=== PATIENT | male | born 2005 | race Caucasian/White ===

== ENCOUNTER 2023-08-21 12:50 | Outpatient (AMB) | payer OTHER, SELFPAY ==
--- NOTE | 2023-08-21 13:09 | MHC.PC.OV ---
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 [facility] Social History (Updated 08/21/23 @ 13:53 by Maris Vera MD) Household Members Other:: [employer] music, plays guitar, lives with grandfather Housing: House Patient Tobacco Use Status: Never used Tobacco e-Cigarette/Vaping Use: Never Used service: No Current occupational status: employed Cognitive needs: No Hearing needs: No Vision needs: Yes Questionnaire PHQ-9 Over the last 2 weeks, how often have you been bothered by any of the following problems? 1. Little interest or pleasure in doing things: several days 2. Feeling down, depressed, or hopeless: several days 3. Trouble falling or staying asleep, or sleeping too much: several days 4. Feeling tired or having little energy: nearly every day 5. Poor appetite or overeating: several days 6. Feeling bad about yourself - or that you are a failure or have let yourself or your family down: several days 7. Trouble concentrating on things, such as reading the newspaper or watching television: several days 8. Moving or speaking so slowly that other people could have noticed. Or the opposite - being so fidgety or restless that you have been moving around a lot more than usual: several days 9. Thoughts that you would be better off or of hurting yourself in some way: not at all Total score: 10 Depression Screening Interpretation: Positive (established with a therapist) Depression Screening Follow-up: Existing condition and In treatment Depression Screening Done: Yes Source: Developed by Drs. Tony Hernandez, Chris Gaytan and colleagues, with an educational hannah from [employer]. Thrive Questionnaire Date Thrive assessed: 08/21/23 I am a: Patient What is your living situation today?: I have a steady place to live Within the past 12 months, did the food you bought not last and you didn't have the money to get more?: Never true Within the past 12 months, did you worry whether your food would run out before you got money to buy more?: Never true Do you have trouble paying for medicines?: No Do you have trouble getting transportation to medical appointments?: No Do you have trouble paying your heating and electricity bill?: No Do you have trouble taking care of your child, family member or friend?: No Do you have trouble with day-to-day activities such as bathing, preparing meals, shopping, managing finances, etc.?: No Are you currently unemployed and looking for a job?: No THRIVE Score: 0 AUDIT C Alcohol Use Questionnaire (AUDIT-C) 1. How often do you have a drink containing alcohol?: Never Total Score: 0 ROSALIND-7 AMB Questionnaire ROSALIND-7 Date ROSALIND - 7 assessed: 08/21/23 Feeling nervous, anxious, or on edge: 3 = Nearly every day Not being able to stop or control worryin = Several days Worrying too much about different things: 3 = Nearly every day Trouble relaxin = More than half the days Being so restless that it is hard to sit still: 2 = More than half the days Becoming easily annoyed or irritable: 1 = Several days Feeling afraid as if something awful might happen: 0 = Not at all Total ROSALIND-7 score (0-4 normal; 5-9 mild; 10-14 moderate; 15-21 severe): 12 Source: Developed by Drs. Tony Hernandez, aKty Campbell, Chris Lomeli and colleagues, with an educational hannah from [employer]. Review of Systems Const All systems reviewed & are unremarkable except as noted in HPI and below Reports no additional complaints Eyes Reports no additional complaints ENT Reports no additional complaints Card Reports no additional complaints Resp Reports no additional complaints GI Reports no additional complaints Physical exam (Primary Care) Vital Signs: Last Vital Signs Pulse 71 08/21/23 13:10 BP 118/70 08/21/23 13:10 Pulse Ox 97 08/21/23 13:10 Oxygen Delivery Method Room Air 08/21/23 13:10 BMI result Body Mass Index 20.5 Tobacco/Smoking Status: Tobacco use Status Tobacco use date assessed 08/21/23 08/21/23 13:15 Patient Tobacco Use Status Never used Tobacco 08/21/23 13:53 e-Cigarette/Vaping Use Never Used 08/21/23 13:53 PHQ-9: PHQ-9 Score PHQ-9: Total score 10 08/21/23 13:55 Depression Screening Interpretation: Positive (established with a therapist) Depression Screening Follow-up: Existing condition and In treatment Thrive Assessment: Date of Thrive Assessment Date Thrive assessed 08/21/23 08/21/23 13:18 Const General: no acute distress HENMT Head: Yes normal to inspection Mouth: Normal oral and palatal mucosa present Eyes General: appearance normal, both eyes and all related structures Neck Neck: Yes no lymphadenopathy and Yes supple Resp Effort & Inspection: normal respiratory effort Auscultation: clear to auscultation bilaterally Cardio Rhythm: regular rhythm Heart sounds: S1 normal heart sound present and S2 normal heart sound present GI Inspection: Yes normal to inspection Palpation (GI): Soft to palpation Percussion: Yes normal to percussion Auscultation: normal bowel sounds Assessment and Plan Assessment & Plan (1) Hypertrophic cardiomyopathy: Comment: [facility] f/u annually Code(s): I42.2 - Other hypertrophic cardiomyopathy Plan: Follow-up with [facility] annually (2) Annual physical exam: Code(s): Z00.00 - Encounter for general adult medical examination without abnormal findings Plan: Well-balanced diet regular physical activity discussed with the patient. He will return for fasting blood work. Orders: Orders Complete Blood Count no Diff Today Z00.00 - Encounter for general adult medical examination without abnormal findings Comprehensive [place]. Panel Fast Today Z00.00 - Encounter for general adult medical examination without abnormal findings Lipid Panel Today Z00.00 - Encounter for general adult medical examination without abnormal findings UA w Microscopic Today Z00.00 - Encounter for general adult medical examination without abnormal findings Coding Level of Care Code Est Pt Prev Care 18-39y(13242) Diagnoses Hypertrophic cardiomyopathy I42.2 Annual physical exam Z00.00
[2023-08-21 13:10] VITALS: BP 118/70; PULSE 71; O2SAT 97; BMI 20.5
== END 2023-08-21 14:03 | disposition home or self-care (01) ==
PROVIDERS: PCP Internal Medicine; Visit Provider Internal Medicine
DX: I42.2 Other hypertrophic cardiomyopathy (principal); Z00.00 Encounter for general adult medical examination without abnormal findings
CPT/HCPCS: 99395

== ENCOUNTER 2024-10-14 08:20 | Outpatient (AMB) | payer OTHER, SELFPAY ==
--- NOTE | 2024-10-14 08:22 | MHC.PC.OV ---
Vital Signs 10/14/24 08:24 Height 5 ft 11 in Weight 159 lb 6 oz BMI 22.2 BP 118/84 Blood Pressure Location Lt brachial Position Sitting Respiration 14 Pulse 86 Pulse Source Pulse Oximeter Temp 98.0 F Temp Source Oral Pulse Oximetry (%) 100 Oxygen Delivery Method Room Air Intake Visit Reasons: Annual PE/insurance inactive Intake Note: Pt is here for annual PE. Allergies pollen extracts [POLLEN] Allergy (Mild, Verified 10/14/24 08:24) ITCHY EYES Medication List - Last Reconciled 10/14/24 by Maris Vera MD No Known Home Meds Tobacco use date assessed: 10/14/24 Dental Screening Dental Screen Date: 10/14/24 Did you have a dental visit in the last 12 months?: No Did you have a dental problem in the last 6 months where you did not have access to dental care?: No Was dental information given to patient?: No HPI Annual PE/insurance inactive HPI Details Patient presents for physical [facility] Medical History (Updated 10/14/24 @ 09:11 by Maris Vera MD) Annual physical exam Hypertrophic cardiomyopathy Social History Household Members Other:: [employer] music, plays guitar, lives with grandfather Housing: House Patient Tobacco Use Status: Never used Tobacco e-Cigarette/Vaping Use: Currently Using service: No Current occupational status: employed Cognitive needs: No Hearing needs: No Vision needs: Yes Questionnaire PHQ-9 Over the last 2 weeks, how often have you been bothered by any of the following problems? 1. Little interest or pleasure in doing things: several days 2. Feeling down, depressed, or hopeless: several days 3. Trouble falling or staying asleep, or sleeping too much: nearly every day 4. Feeling tired or having little energy: more than half the days 5. Poor appetite or overeating: not at all 6. Feeling bad about yourself - or that you are a failure or have let yourself or your family down: not at all 7. Trouble concentrating on things, such as reading the newspaper or watching television: more than half the days 8. Moving or speaking so slowly that other people could have noticed. Or the opposite - being so fidgety or restless that you have been moving around a lot more than usual: not at all 9. Thoughts that you would be better off or of hurting yourself in some way: not at all Total score: 9 Depression Screening Interpretation: Positive (Patient will schedule an appointment with a counselor he declined medications) Depression Screening Follow-up: Existing condition Depression Screening Done: Yes 33339 - PHQ-9 Billing: Yes Source: Developed by Drs. Tony Hernandez, Katy Campbell, Chris Lomeli and colleagues, with an educational hannah from [employer] Thrive Questionnaire Date Thrive assessed: 10/14/24 I am a: Patient What is your living situation today?: I have a steady place to live Within the past 12 months, did the food you bought not last and you didn't have the money to get more?: Never true Within the past 12 months, did you worry whether your food would run out before you got money to buy more?: Never true Do you have trouble paying for medicines?: No Do you have trouble getting transportation to medical appointments?: No Do you have trouble paying your heating and electricity bill?: No Do you have trouble taking care of your child, family member or friend?: No Do you have trouble with day-to-day activities such as bathing, preparing meals, shopping, managing finances, etc.?: No Are you currently unemployed and looking for a job?: No Are you interested in more education?: No Please select the resources that you would like help with: None Currently or been in a relationship where the following occur: No concerns reported THRIVE Score: 0 AUDIT C Alcohol Use Questionnaire (AUDIT-C) 1. How often do you have a drink containing alcohol?: 2-4 times a month 2. How many drinks containing alcohol do you have on a typical day when you are drinking?: 3 or 4 3. How often do you have six or more drinks on one occasion?: Less than monthly Total Score: 4 ROSALIND-7 AMB Questionnaire ROSALIND-7 Date ROSALIND - 7 assessed: 10/14/24 Feeling nervous, anxious, or on edge: 3 = Nearly every day Not being able to stop or control worryin = More than half the days Worrying too much about different things: 2 = More than half the days Trouble relaxin = Several days Being so restless that it is hard to sit still: 1 = Several days Becoming easily annoyed or irritable: 1 = Several days Feeling afraid as if something awful might happen: 1 = Several days Total ROSALIND-7 score (0-4 normal; 5-9 mild; 10-14 moderate; 15-21 severe): 11 Source: Developed by Drs. Tony Hernandez, Katy Campbell, Chris Lomeli and colleagues, with an educational hannah from [employer] ROSALIND-7 Assessment Billing ROSALIND-7 Assessment Tool: ROSALIND-7 Assessment 10609 Physical exam (Primary Care) Vital Signs: Last Vital Signs Temp 98.0 F 10/14/24 08:24 Pulse 86 10/14/24 08:24 Resp 14 10/14/24 08:24 BP 118/84 10/14/24 08:24 Pulse Ox 100 10/14/24 08:24 Oxygen Delivery Method Room Air 10/14/24 08:24 BMI result Body Mass Index 22.2 Tobacco/Smoking Status: Tobacco use Status Tobacco use date assessed 10/14/24 10/14/24 08:29 Patient Tobacco Use Status Never used Tobacco 10/14/24 08:29 e-Cigarette/Vaping Use Currently Using 10/14/24 08:29 PHQ-9: PHQ-9 Score PHQ-9: Total score 9 10/14/24 08:29 Depression Screening Interpretation: Positive (Patient will schedule an appointment with a counselor he declined medications) Depression Screening Follow-up: Existing condition Thrive Assessment: Date of Thrive Assessment Date Thrive assessed 10/14/24 10/14/24 08:29 Currently or been in a relationship where the following occur: No concerns reported Const General: no acute distress HENMT Head: Yes normal to inspection Ears: hearing grossly normal bilaterally Face and sinus: Yes normal facial exam Throat: Yes posterior oropharynx normal Eyes General: appearance normal, both eyes and all related structures Neck Neck: Yes no lymphadenopathy and Yes supple Resp Effort & Inspection: normal respiratory effort Auscultation: clear to auscultation bilaterally Cardio Rhythm: regular rhythm Heart sounds: S1 normal heart sound present and S2 normal heart sound present GI Inspection: Yes normal to inspection Palpation (GI): Soft to palpation Percussion: Yes normal to percussion Auscultation: normal bowel sounds Coding Level of Care Code Est Pt Level 3 (32184) Diagnoses Annual physical exam Z00.00 Hypertrophic cardiomyopathy I42.2 Additional Codes ROSALIND-7 Assessment Billing - ROSALIND-7 Assessment Tool: ROSALIND-7 Assessment 89505 ([id number]) PHQ-9 - 37068 - PHQ-9 Billing: Yes ([id number]) Assessment & Plan Assessment & Plan (1) Annual physical exam: Code(s): Z00.00 - Encounter for general adult medical examination without abnormal findings Category: Medical Plan: Well-balanced diet regular exercise mindfulness discussed with the patient. he will follow-up with a counselor for anxiety (2) Hypertrophic cardiomyopathy: Comment: [facility] f/u annually Code(s): I42.2 - Other hypertrophic cardiomyopathy Category: Medical Plan: Follow-up with cardiology at [facility] Orders: Orders Lipid Panel Today I42.2 - Other hypertrophic cardiomyopathy, Z00.00 - Encounter for general adult medical examination without abnormal findings Comprehensive [place]. Panel Fast Today I42.2 - Other hypertrophic cardiomyopathy, Z00.00 - Encounter for general adult medical examination without abnormal findings Complete Blood Count Auto Diff Today I42.2 - Other hypertrophic cardiomyopathy, Z00.00 - Encounter for general adult medical examination without abnormal findings UA w Microscopic Today I42.2 - Other hypertrophic cardiomyopathy, Z00.00 - Encounter for general adult medical examination without abnormal findings
[2024-10-14 08:24] VITALS: BP 118/84; PULSE 86; RESP 14; TEMP 36.7; O2SAT 100; BMI 22.2
--- OUTSIDE RECORDS SUMMARY | 2024-10-14 08:30 | XMS_ITS | Encounter Summary ---
Author Organization [facility] Address [address] [place] [address] Phone Care Team Providers Care Construction Manager Name Role Phone Edinson Frey MD Primary Care Provider Encounter Details Date Type Department Care Team (Late st Contact Info) Description 09/29/2012 Documentation [facility] Family Medicine [address] [place], [place] [id number] Family Medicine, Physician [address] [place] [address] Social History Tobacco Use Types Packs/Day Years Used Date Smoking Tobacco: Never Assessed Sex and Gender Information Value Date Recorded Sex Assigned at Not on file Legal Sex Male 4:45 PM EDT Gender Identity Not on file Sexual Orientation Not on file documented as of this encounter Plan of Treatment Not on file documented as of this encounter Visit Diagnoses Not on filedocumented in this encounter Care Teams Construction Manager Relationship Specialty Start Date End Date Edinson Frey MD [address] [place] [address] KALIN Calvin [id number] PCP - General Pediatrics 12/30/22 03/11/23 documented as of this encounter
== END 2024-10-14 08:49 | disposition home or self-care (01) ==
PROVIDERS: PCP Internal Medicine; Visit Provider Internal Medicine
DX: Z00.00 Encounter for general adult medical examination without abnormal findings (principal); I42.2 Other hypertrophic cardiomyopathy

== ENCOUNTER 2024-10-14 08:20 | Outpatient (REF) | payer OTHER, SELFPAY ==
[2024-10-14 09:58] LABS: MANUAL DIFF FLAG NO
[2024-10-14 10:09] LABS: Basophils Percent Auto 0.5 % (0-2); Eosinophils Absolute Auto 0.2 X10*3/uL (0.0-0.4); Hematocrit 46.3 % (42.0-52.0); Imm Gran Abs Auto 0.01 X10*3/uL (0.00-0.03); Imm Gran Pct Auto 0.2 % (0.0-0.4); Lymphocytes Absolute Auto 2.1 X10*3/uL (1.2-4.9); Lymphocytes Percent Auto 35.4 % (20-40); Mean Corpuscular HGB Conc 34.6 g/dl (31.0-36.0); Mean Corpuscular Hemoglobin 30.9 pg (27.0-33.0); Mean Corpuscular Volume 89.4 fL (80.0-98.0); Mean Platelet Volume 10.4 fL (9.4-12.4); Monocytes Absolute Auto 0.6 X10*3/uL (0.1-1.2); Monocytes Percent Auto 9.5 % (2-11); Neutrophils Absolute Auto 2.9 x10*3/uL (2.0-8.3); Neutrophils Percent Auto 50.4 % (45-73); Platelet Count 195 X10*3/uL (160-400); Red Blood Count 5.18 X10*6/uL (4.60-5.80); Red Cell Distribution Width 12.5 % (11.0-16.0); White Blood Count 5.8 X10*3/uL (4.8-10.8)
[2024-10-14 10:52] LABS: Appearance Urine Clear; Color Urine Yellow; Glucose Urine UA Negative (Negative); Leukocyte Esterase Urine Negative (Negative); Nitrite Urine Negative (Negative); PH 5.5 (5.0-9.0); Urine Blood Negative (Negative); Urine Ketones Negative (Negative); Urine Protein Negative (Neg-Trace)
[2024-10-14 10:59] LABS: Bacteria Urine None Seen (None Seen); Hyaline Casts Urine 0-2 /LPF (0-2); RBC Urine 0-2 /HPF (0-2); Squamous Epithelial Cell Urine 0-2 /HPF (0-2); WBC Urine 0-5 /HPF (0-5)
[2024-10-14 11:05] LABS: Alanine Aminotransferase 16 U/L (0-40); Albumin Level 4.7 g/dL (3.5-5.0); Alkaline Phosphatase 42 U/L (39-117); Anion Gap 10 (12-20); Aspartate Amino Transferase 21 U/L (5-37); Bilirubin Total 0.8 mg/dL (0.0-1.0); Blood Urea Nitrogen 12 mg/dL (9-16); Calcium 8.9 mg/dL (8.4-10.2); Carbon Dioxide 26 mmol/L (22-29); Chloride 107 mmol/L (96-108); Cholesterol 124 mg/dL (<200); Estimated Glomerular Filt Rate > 60; Glucose Fasting 92 mg/dL (60-99); HDL Cholesterol 48 mg/dL (>40); LDL Cholesterol Calculated 56 mg/dL (<100); Potassium 3.7 mmol/L (3.3-5.1); Sodium 139 mmol/L (135-145); Total Protein 7.3 g/dL (6.5-8.0); Triglycerides 102 mg/dL (<150)
== END 2024-10-14 08:21 | disposition home or self-care (01) ==
LOC: HO.HMGCLDS 08:20
PROVIDERS: PCP Internal Medicine; Visit Provider Internal Medicine
DX: Z00.00 Encounter for general adult medical examination without abnormal findings (principal); I42.2 Other hypertrophic cardiomyopathy
CPT/HCPCS: 36415; 80053; 80061; 81001; 85025; 96127; 99395